=== PATIENT | female | born 1940 | race American Indian/Alaskan Native ===

== ENCOUNTER 2016-12-24 13:07 | Outpatient (CLI) | payer MEDICARE ==
--- NOTE | 2016-12-24 14:37 | Mammography Report ---
BILATERAL MAMMOGRAM: FINDINGS: The breasts are almost entirely fat (<25% glandular). No mass, distortion, suspicious calcification, or skin change is seen. CAD was utilized. IMPRESSION: Negative mammogram. There is no mammographic evidence of malignancy. RECOMMENDATION: Follow-up per ACS guidelines. BI-RADS CATEGORY: 1 = Negative ACR BI-RADS MAMMOGRAPHIC CODES: 0 = Needs additional imaging evaluation; 1 = Negative; 2 = Benign; 3 = Probably benign; 4 = Suspicious; 5 = Malignant; 6 = Known biopsy-proven malignancy COMMENT: 1. Dense breast tissue, i.e., adenosis, fibrocystic changes, etc., may obscure an underlying neoplasm. 2. Approximately 10% of cancers are not detected with mammography. 3. A negative mammography report should not delay biopsy if a clinically suspicious mass is present. COMMENT: Patient follow-up letters are generated in [facility].
== END 2016-12-24 13:08 | disposition home or self-care (01) ==
LOC: SPVWC 13:07
PROVIDERS: ATTEND Internal Medicine
DX: Z12.31 Encounter for screening mammogram for malignant neoplasm of breast (principal)
CPT/HCPCS: 77067; G0202

== ENCOUNTER 2018-05-04 21:46 | Inpatient (IN) | payer MEDICARE ==
[2018-05-05 00:51] LABS: Basophils # (Auto) 0.1 K/mm3 (0.0-0.1); Basophils % (Auto) 0.6 % (0.0-1.8); Eosinophils # (Auto) 0.2 K/mm3 (0.0-0.4); Eosinophils % (Auto) 1.8 % (0.0-4.3); Hematocrit 39.1 % (30.3-42.9); Hemoglobin 12.8 gm/dl (10.1-14.3); Lymphocytes # (Auto) 2.8 K/mm3 (1.2-5.4); Lymphocytes % (Auto) 20.7 % (13.4-35.0); Mean Corpuscular HGB Conc 33 % (30-34); Mean Corpuscular Volume 76 fl (79-97); Monocytes # (Auto) 1.1 K/mm3 (0.0-0.8); Monocytes % (Auto) 8.6 % (0.0-7.3); Platelet Count 308 K/mm3 (140-440); Red Blood Count 5.12 M/mm3 (3.65-5.03); Red Cell Distribution Width 17.2 % (13.2-15.2)
[2018-05-05 01:09] LABS: Alanine Aminotransferase 15 units/L (7-56); Albumin 3.7 g/dL (3.9-5); BUN/Creatinine Ratio 20; Blood Urea Nitrogen 14 mg/dL (7-17); Calcium 8.9 mg/dL (8.4-10.2); Hemolysis Index 6; Lipase 28 units/L (13-60)
[2018-05-05 01:09] LABS: Bacteria,Urine 4+ /HPF (Negative); Bilirubin,Urine NEG (Negative); Blood,Urine LG (Negative); Color,Urine Yellow (Yellow); Mucus,Urine 3+ /HPF; Protein,Urine <15 mg/dL mg/dL (Negative); Urobilinogen,Urine < 2.0 mg/dL (<2.0)
[2018-05-05 01:19] LABS: INR 0.95 (0.87-1.13)
[2018-05-05 01:20] LABS: Partial Thromboplastin Time 29.3 Sec. (24.2-36.6)
[2018-05-05 01:23] LABS: Mean Corpuscular Hemoglobin 25 pg (28-32)
[2018-05-05] MEDS ORDERED: PROTONIX IV ONE (04:41)
--- NOTE | 2018-05-05 04:42 | Emergency Department Report ---
ED GI Bleed HPI - General Chief complaint: GI Bleed Stated complaint: RECTAL BLEEDING/POSS VAG BLEEDING Time Seen by Provider: 05/05/18 04:18 Source: patient Mode of arrival: Wheelchair Limitations: No Limitations - History of Present Illness Initial comments: 1 day of black stool. Does not take blood thinners, iron, or Pepto-Bismol. She had an episode of this year ago, which resulted in a colonoscopy. Patient is not sure what it showed. Patient has also noticed blood in her urine and feels that she is urinating more often. Severity scale (0 -10): 0 - Related Data Home Medications Medication Instructions Recorded Confirmed Last Taken Aspirin EC [Aspirin Enteric Coated 81 mg PO QDAY 07/30/15 07/30/15 07/30/15 TAB] Metoprolol [Lopressor TAB] 50 mg PO QDAY 07/30/15 07/30/15 07/30/15 amLODIPine [Norvasc] 5 mg PO DAILY 07/30/15 07/30/15 07/30/15 Previous Rx's Medication Instructions Recorded Last Taken Type levoFLOXacin [Levaquin TAB] 500 mg PO QDAY #7 tablet 08/02/15 Unknown Rx Allergies Allergy/AdvReac Type Severity Reaction Status Date / Time No Known Allergies Allergy Unverified 07/30/15 20:15 ED Review of Systems ROS: Stated complaint: RECTAL BLEEDING/POSS VAG BLEEDING Other details as noted in HPI Comment: All other systems reviewed and negative Gastrointestinal: melena Genitourinary: frequency ED Past Medical Hx - Past Medical History Previous Medical History?: Yes Hx Hypertension: Yes Hx Arthritis: Yes - Surgical History Past Surgical History?: Yes Additional Surgical History: Jason. knee surgery - Social History Smoking Status: Never Smoker Substance Use Type: None - Medications Home Medications: Home Medications Medication Instructions Recorded Confirmed Last Taken Type Aspirin EC [Aspirin Enteric Coated 81 mg PO QDAY 07/30/15 07/30/15 07/30/15 History TAB] Metoprolol [Lopressor TAB] 50 mg PO QDAY 07/30/15 07/30/15 07/30/15 History amLODIPine [Norvasc] 5 mg PO DAILY 07/30/15 07/30/15 07/30/15 History levoFLOXacin [Levaquin TAB] 500 mg PO QDAY #7 tablet 08/02/15 Unknown Rx ED Physical Exam - General Limitations: No Limitations General appearance: alert, in no apparent distress - Head Head exam: Present: atraumatic, normocephalic - Eye Eye exam: Present: normal appearance - ENT ENT exam: Present: mucous membranes moist - Neck Neck exam: Present: normal inspection - Respiratory Respiratory exam: Present: normal lung sounds bilaterally. Absent: respiratory distress - Cardiovascular Cardiovascular Exam: Present: regular rate, normal rhythm. Absent: systolic murmur, diastolic murmur, rubs, gallop - GI/Abdominal GI/Abdominal exam: Present: soft, normal bowel sounds. Absent: distended, tenderness, guarding, rebound - Rectal Rectal exam: Present: heme (+) stool, black stool. Absent: hemorrhoids - Extremities Exam Extremities exam: Present: normal inspection - Back Exam Back exam: Present: normal inspection - Neurological Exam Neurological exam: Present: alert, oriented X3 - Psychiatric Psychiatric exam: Present: normal affect, normal mood - Skin Skin exam: Present: warm, dry, intact, normal color. Absent: rash ED Course Vital Signs 05/04/18 05/04/18 05/05/18 23:42 23:52 04:10 Temperature 98.5 F 98.7 F 98.1 F Pulse Rate 61 63 69 Respiratory 18 17 16 Rate Blood Pressure 172/68 172/68 Blood Pressure 158/71 [Left] O2 Sat by Pulse 100 99 97 Oximetry ED Medical Decision Making - Lab Data Result diagrams: 05/05/18 00:10 05/05/18 00:10 - Medical Decision Making 78-year-old female with past medical history of hypertension that presents with dark stool. Lab work is unremarkable. Vital signs are stable. Patient is well-appearing. Urinalysis shows concerns for UTI. SHe'll be treated with Keflex. Hemoglobin is stable. Melena on exam. I offered the patient outpatient follow-up with GI, but this made her feel uncomfortable. Patient has been given Protonix and will be admitted to the hospital for GI evaluation. Critical care attestation.: If time is entered above; I have spent that time in minutes in the direct care of this critically ill patient, excluding procedure time. ED Disposition Clinical Impression: Gastrointestinal hemorrhage with melena, UTI (urinary tract infection), Melena Disposition: OP ADMIT IP TO THIS HOSP Is pt being admited?: Yes Does the pt Need Aspirin: No Condition: Stable Referrals: PRIMARY CARE, [Primary Care Provider] - 3-5 Days Forms: Accompanied Note
[2018-05-05] MEDS ORDERED: KEFLEX PO ONE (04:44)
[2018-05-05] MEDS ORDERED: TYLENOL PO PRN (06:29)
[2018-05-05] MEDS ORDERED: ZOFRAN IV PRN (06:29)
[2018-05-05] MEDS ORDERED: NACL 0.9% 1000 ML 1,000 ML IV SCH ×2 (07:00→11:00)
--- NOTE | 2018-05-05 08:44 | History and Physical Report ---
CHIEF COMPLAINT: Rectal bleeding. HISTORY OF PRESENT ILLNESS: The patient is a 78-year-old female who said she has been seeing dark red blood in stool and also dark stool, going on for some time. There is no history of abdominal pain. No history of nausea or vomiting. The patient admitted to taking nonsteroidal anti-inflammatory agents, occasionally for pain and denied history of diarrhea or constipation. There is also no history of fever or chills. The patient presented for evaluation. PAST MEDICAL HISTORY: Pertinent for hypertension and arthritis. PAST SURGICAL HISTORY: Pertinent for bilateral knee surgery. FAMILY HISTORY: Noncontributory. SOCIAL HISTORY: The patient lives with family. Does not drink, does not drink alcohol, or does not use illicit drugs. MEDICATIONS: The patient is on aspirin 81 mg by mouth daily, metoprolol tablet 50 mg by mouth daily, amlodipine 5 mg by mouth daily, Levaquin 500 mg by mouth daily. ALLERGIES: There are no known drug allergies. REVIEW OF SYSTEMS: CONSTITUTIONAL: There is no fever, no chills, no diaphoresis. HEENT: There is no headache or sore throat. CARDIOVASCULAR: There is no chest pain or orthopnea. RESPIRATORY: There is no shortness of breath or cough. GASTROINTESTINAL: There is no abdominal pain, no nausea, no vomiting, no diarrhea or constipation. The patient does have melena and dark red color in the stool. NEUROLOGICAL SYSTEM: There is no numbness, no dizziness, no altered mental status. MUSCULOSKELETAL SYSTEM: There is no joint pain or swelling. DERMATOLOGICAL SYSTEM: There is no skin rash or itching. GENITOURINARY SYSTEM: There is no dysuria, hematuria or flank pain. Rest of system review is normal. PHYSICAL EXAMINATION: GENERAL: At the time of exam, the patient was found to be alert, oriented x 3, not in acute distress. VITAL SIGNS: Shows temperature of 98.5 degrees Fahrenheit, pulse of 61, respirations 18, blood pressure 172/68, O2 sat of 100% on room air. HEENT: Showed pupils to be equal, round, reactive to light and accommodation. Extraocular muscles are intact. NECK: Supple with no JVD or carotid bruit. CARDIOVASCULAR: Showed normal first and second heart sounds with no gallops or murmur. RESPIRATORY SYSTEM: Show good air entry on both sides of the lung with no abnormal breath sounds. GASTROINTESTINAL SYSTEM: Show abdomen to be full, soft, nontender with no organomegaly or rigidity. NEUROLOGIC: Reveals that she has no focal deficits. MUSCULOSKELETAL: Shows no joint swelling or tenderness. DERMATOLOGICAL SYSTEM: Show no skin rash. GENITOURINARY: Showing no costovertebral angle tenderness. PERTINENT LABORATORY DATA AND IMAGING STUDIES: The patient has CBC that shows elevated white count of 13.3 with normal hemoglobin, normal hematocrit and low MCV of 76. CBC with differential showing slight increase in segmented neutrophils. The patient's coagulation studies were unremarkable. The patient's chemistry was unremarkable except for slight decrease in CO2 of 21 and slight decrease in albumin level of 3.7. The patient's urinalysis does show moderate urine leukocyte esterase and elevated urine wbc's of 51 with 4+ bacteria. IMAGING STUDIES: No imaging studies were done at this time. DIAGNOSES: 1. Gastrointestinal bleed. 2. Urinary tract infection. PLAN: 1. The patient will be admitted to telemetry. 2. The patient will have hemoglobin and hematocrit checked q. 6 hours x 3 more levels. 3. The patient will be n.p.o. 4. The patient will have GI consult with [place] Daljit and Dr. Jeroinmo Mccloud has been listed. 5. The patient will be on IV normal saline at 75 mL an hour. 6. The patient will be on IV Protonix 40 mg q. 12 hours and will be on IV Zofran 4 mg every 8 hours as needed for nausea and vomiting. 7. The patient will be on Tylenol 650 mg by mouth every 4 hours for fever and headache and will be on IV ceftriaxone 1 gram daily for treatment of urinary tract infection. The patient will remain n.p.o. until seen by the Gastroenterology. JOB# [id number] OCN/NTS
--- NOTE | 2018-05-05 09:04 | Gastroenterology Consultation ---
<GERA MARCOS - Last Filed: 05/05/18 09:05> History of Present Illness - Reason for Consult Consult date: 05/05/18 GI bleed Requesting physician: ANTONY TOMAS - History of Present Illness Patient is a 78 y/o female with PMH of HTN who presented to the ED with c/o dark stool x 1 day and concerns for UTI. Urine positive for UTI with abx therapy given. This morning patient was resting on stretcher w/o acute distress. Reports black stool yesterday with also some red blood also noted in toilet. Denies fever, wt loss, CP, SOB, dizziness, abd pain, N/V, hematemesis, dysphagia, diarrhea, or constipation. Takes Celebrex at home for arthritis. No hx of PUD or previous EGD. Last colonoscopy within the past year with negative results per pt. According to ER record, rectal exam revealed black heme + stool. Upon exam this am, rectal revealed a small amount of bright red blood, however patient had urinated and origin of bleeding was uncertain (rectal vs vaginal?). No Fhx of colon cancer. Past History Past Medical History: arthritis, hypertension Past Surgical History: hysterectomy, total knee replacement (bilateral) Social history: denies: smoking, alcohol abuse Medications and Allergies Allergies Allergy/AdvReac Type Severity Reaction Status Date / Time No Known Allergies Allergy Unverified 07/30/15 20:15 Home Medications Medication Instructions Recorded Confirmed Last Taken Type Metoprolol [Lopressor TAB] 50 mg PO QDAY 07/30/15 05/05/18 07/30/15 History amLODIPine [Norvasc] 5 mg PO DAILY 07/30/15 05/05/18 07/30/15 History Celecoxib 200 mg PO DAILY 05/05/18 05/05/18 Unknown History Furosemide [Lasix] 20 mg PO QDAY 05/05/18 05/05/18 Unknown History Omeprazole 40 mg PO DAILY 05/05/18 05/05/18 Unknown History Active Meds: Active Medications Acetaminophen (Tylenol) 650 mg PO Q4H PRN PRN Reason: Fever >101 Ceftriaxone Sodium (Rocephin/Ns 1 Gm/50 Ml) 1 gm in 50 mls @ 100 mls/hr IV Q24HR AR; Protocol Sodium Chloride (Nacl 0.9% 1000 Ml) 1,000 mls @ 75 mls/hr IV DIRECT AR Ondansetron HCl (Zofran) 4 mg IV Q8H PRN PRN Reason: Nausea And Vomiting Pantoprazole Sodium (Protonix) 40 mg IV Q12H AR Review of Systems - Review of Systems All systems: negative Gastrointestinal: melena Exam - Constitutional Vital Signs: Temp Pulse Resp BP Pulse Ox 98.1 F 69 16 156/62 98 05/05/18 04:10 05/05/18 04:10 05/05/18 04:10 05/05/18 07:00 05/05/18 07:00 General appearance: no acute distress - EENT Eyes: PERRL, EOM intact ENT: hearing intact - Respiratory Respiratory: bilateral: CTA (anterior) - Cardiovascular Rhythm: regular Heart Sounds: Present: S1 & S2 - Gastrointestinal General gastrointestinal: Present: soft, non-tender, non-distended, normal bowel sounds Rectal Exam: other (no stool, scant amount of bright red blood (rectal vs vaginal from urine?)) - Neurologic Neurological: alert and oriented x3 - Labs CBC & Chem 7: 05/05/18 00:10 05/05/18 00:10 Lab Results: Laboratory Results - last 24 hr 05/04/18 05/05/18 05/05/18 Unknown 00:10 00:10 WBC 13.3 H RBC 5.12 H Hgb 12.8 Hct 39.1 MCV 76 L MCH 25 L MCHC 33 RDW 17.2 H Plt Count 308 Lymph % (Auto) 20.7 [place] % (Auto) 8.6 H Eos % (Auto) 1.8 Baso % (Auto) 0.6 Lymph # 2.8 [place] # 1.1 H Eos # 0.2 Baso # 0.1 Seg Neutrophils % 68.3 Seg Neutrophils # 9.1 H PT 13.2 INR 0.95 APTT 29.3 Sodium Potassium Chloride Carbon Dioxide Anion Gap BUN Creatinine Estimated GFR BUN/Creatinine Ratio Glucose Calcium Total Bilirubin AST ALT Alkaline Phosphatase Total Protein Albumin Albumin/Globulin Ratio Lipase Urine Color Yellow Urine Turbidity Cloudy Urine pH 5.0 Ur Specific [place] 1.019 Urine Protein <15 mg/dl Urine Glucose (UA) Neg Urine Ketones Neg Urine Blood Lg Urine Nitrite Pos Urine Bilirubin Neg Urine Urobilinogen < 2.0 Ur Leukocyte Esterase Mod Urine WBC (Auto) 51.0 H Urine RBC (Auto) 5.0 U Epithel Cells (Auto) 5.0 Urine Bacteria (Auto) 4+ Urine Mucus 3+ Blood Type Antibody Screen 05/05/18 05/05/18 00:10 00:10 WBC RBC Hgb Hct MCV MCH MCHC RDW Plt Count Lymph % (Auto) [place] % (Auto) Eos % (Auto) Baso % (Auto) Lymph # [place] # Eos # Baso # Seg Neutrophils % Seg Neutrophils # PT INR APTT Sodium 138 Potassium 3.8 Chloride 101.8 Carbon Dioxide 21 L Anion Gap 19 BUN 14 Creatinine 0.7 Estimated GFR > 60 BUN/Creatinine Ratio 20 Glucose 95 Calcium 8.9 Total Bilirubin 0.30 AST 24 ALT 15 Alkaline Phosphatase 100 Total Protein 7.5 Albumin 3.7 L Albumin/Globulin Ratio 1.0 Lipase 28 Urine Color Urine Turbidity Urine pH Ur Specific [place] Urine Protein Urine Glucose (UA) Urine Ketones Urine Blood Urine Nitrite Urine Bilirubin Urine Urobilinogen Ur Leukocyte Esterase Urine WBC (Auto) Urine RBC (Auto) U Epithel Cells (Auto) Urine Bacteria (Auto) Urine Mucus Blood Type B POSITIVE Antibody Screen Negative Assessment and Plan 1.GI bleed 2.melena 3.UTI- on abx therapy -afebrile -WBC 13.3 -INR 0.95 -H/H 12.8/39.1 -continue to monitor H/H and transfuse as needed -Black stool yesterday per pt, rectal this am showed a small amount of bright red blood with origin unclear (rectal vs vaginal?) -currently HD stable -colonoscopy within 1 year with negative results per pt -etiology unclear -will schedule for EGD this am to r/o ulcer vs other GI pathology -keep NPO -continue PPI and supportive care -will follow <CAT PRESTON - Last Filed: 05/05/18 10:04> Medications and Allergies Active Meds: Active Medications Acetaminophen (Tylenol) 650 mg PO Q4H PRN PRN Reason: Fever >101 Ceftriaxone Sodium (Rocephin/Ns 1 Gm/50 Ml) 1 gm in 50 mls @ 100 mls/hr IV Q24HR AR; Protocol Sodium Chloride (Nacl 0.9% 1000 Ml) 1,000 mls @ 75 mls/hr IV DIRECT AR Ondansetron HCl (Zofran) 4 mg IV Q8H PRN PRN Reason: Nausea And Vomiting Pantoprazole Sodium (Protonix) 40 mg IV Q12H AR Exam - Constitutional Vital Signs: Temp Pulse Resp BP Pulse Ox 98 F 61 16 147/58 99 05/05/18 08:00 05/05/18 09:16 05/05/18 09:16 05/05/18 09:16 05/05/18 09:16 - Labs CBC & Chem 7: 05/05/18 00:10 05/05/18 00:10 Lab Results: Laboratory Results - last 24 hr 05/04/18 05/05/18 05/05/18 Unknown 00:10 00:10 WBC 13.3 H RBC 5.12 H Hgb 12.8 Hct 39.1 MCV 76 L MCH 25 L MCHC 33 RDW 17.2 H Plt Count 308 Lymph % (Auto) 20.7 [place] % (Auto) 8.6 H Eos % (Auto) 1.8 Baso % (Auto) 0.6 Lymph # 2.8 [place] # 1.1 H Eos # 0.2 Baso # 0.1 Seg Neutrophils % 68.3 Seg Neutrophils # 9.1 H PT 13.2 INR 0.95 APTT 29.3 Sodium Potassium Chloride Carbon Dioxide Anion Gap BUN Creatinine Estimated GFR BUN/Creatinine Ratio Glucose Calcium Total Bilirubin AST ALT Alkaline Phosphatase Total Protein Albumin Albumin/Globulin Ratio Lipase Urine Color Yellow Urine Turbidity Cloudy Urine pH 5.0 Ur Specific [place] 1.019 Urine Protein <15 mg/dl Urine Glucose (UA) Neg Urine Ketones Neg Urine Blood Lg Urine Nitrite Pos Urine Bilirubin Neg Urine Urobilinogen < 2.0 Ur Leukocyte Esterase Mod Urine WBC (Auto) 51.0 H Urine RBC (Auto) 5.0 U Epithel Cells (Auto) 5.0 Urine Bacteria (Auto) 4+ Urine Mucus 3+ Blood Type Antibody Screen 05/05/18 05/05/18 00:10 00:10 WBC RBC Hgb Hct MCV MCH MCHC RDW Plt Count Lymph % (Auto) [place] % (Auto) Eos % (Auto) Baso % (Auto) Lymph # [place] # Eos # Baso # Seg Neutrophils % Seg Neutrophils # PT INR APTT Sodium 138 Potassium 3.8 Chloride 101.8 Carbon Dioxide 21 L Anion Gap 19 BUN 14 Creatinine 0.7 Estimated GFR > 60 BUN/Creatinine Ratio 20 Glucose 95 Calcium 8.9 Total Bilirubin 0.30 AST 24 ALT 15 Alkaline Phosphatase 100 Total Protein 7.5 Albumin 3.7 L Albumin/Globulin Ratio 1.0 Lipase 28 Urine Color Urine Turbidity Urine pH Ur Specific [place] Urine Protein Urine Glucose (UA) Urine Ketones Urine Blood Urine Nitrite Urine Bilirubin Urine Urobilinogen Ur Leukocyte Esterase Urine WBC (Auto) Urine RBC (Auto) U Epithel Cells (Auto) Urine Bacteria (Auto) Urine Mucus Blood Type B POSITIVE Antibody Screen Negative Assessment and Plan - Patient Problems (1) Gastrointestinal hemorrhage with melena Current Visit: Yes Status: Acute Plan to address problem: The patient was seen and personally interviewed and examined. History of melena , but no evidence of significant blood loss. Will plan EGD. She may need a colonoscopy if negative. Thank you for asking us to see her in consultation. (2) Urinary tract infection Current Visit: Yes Status: Acute
[2018-05-05] MEDS ORDERED: NACL 0.9% 1000 ML 1,000 ML ONE (10:23)
[2018-05-05] MEDS ORDERED: VERSED ONE (10:43)
[2018-05-05] MEDS ORDERED: DIPRIVAN 10 MG/ML IV ONE (10:43)
--- NOTE | 2018-05-05 10:52 | Anesthesia Consultation ---
Anesthesia Consult and Med Hx - Airway Anesthetic Teeth Evaluation: Dentures ROM Head & Neck: Adequate Mental/Hyoid Distance: Adequate Mallampati Class: Class I Intubation Access Assessment: Probably Good - Pulmonary Exam CTA: Yes - Cardiac Exam Cardiac Exam: RRR - Pre-Operative Health Status ASA Pre-Surgery Classification: ASA3 Proposed Anesthetic Plan: General - Cardiovascular System Hx Hypertension: Yes - Central Nervous System CVA: No Hx Psychiatric Problems: No - Additional Comments Anesthesia Medical History Comments: Presents with GI bleed.
--- NOTE | 2018-05-05 11:06 | Operative Report ---
Operative Report Operative Report: Date of procedure: 05/05/2018 Procedure: Esophagogastroduodenoscopy Preprocedure diagnosis: Melena and Hemoccult-positive stool Post procedure diagnosis: Retained old food in the stomach consistent with gastroparesis, otherwise normal upper digestive tract with no overt bleeding sources. Endoscopist: Dr. Beaver Anesthesia: Monitored anesthesia care per anesthesia department Medications: ropofol per anesthesia]Estimated blood loss: 0 After careful discussion of the nature and purpose of the procedure as well as details the technique risks benefits and alternatives consent was obtained. The patient was placed in the left lateral decubitus position and medicated per anesthesia. The tip of the Connect 570 video scope was passed per orum under direct vision into the esophagus and advanced into the stomach and descending duodenum. The descending duodenum the duodenal bulb and pylorus were symmetrical and normal. The scope was withdrawn into the stomach and the stomach then gently insufflated with air. The antrum was normal. The stomach was further insufflated and the scope was then retroflexed and partially withdrawn. There was a moderate amount of old food present on the greater curvature of the stomach precluding some areas from visual inspection. The findings were consistent with gastroparesis and absence of a gastric outlet obstruction. The cardia, fundus, and body of the stomach were within normal limits and easily distensible.The scope was then withdrawn in the forward position. The esophagogastric junction was at 40 cm. The esophageal body was normal throughout. The procedure was was well tolerated and the patient was observed in recovery. Impressions: Retained old food in the stomach consistent with gastroparesis. No evidence of gastric outlet obstruction. No ulcers or tumor. Sources of blood loss. Plan: Outpatient colonoscopy in light of normal hemoglobin. Advance diet. Follow up H&H in a.m. Electronically signed: Cristiano Beaver MD
[2018-05-05] MEDS ORDERED: WATER FOR IRRIG STERILE IR ONE (12:22)
[2018-05-05] MEDS ORDERED: XYLOCAINE MPF 2% ONE (12:30)
--- NOTE | 2018-05-05 13:16 | Anesthesia Day of Surgery ---
Anesthesia Day of Surgery - Day of Surgery Patient Examined: Yes Patient H&P Reviewed: Yes Patient is NPO: Yes Beta Blockers: Yes Cardiac Clearance: No Pulmonary Clearance: No
[2018-05-05] MEDS ORDERED: APRESOLINE IV PRN (14:04)
[2018-05-05] MEDS: ROCEPHIN/NS 1 GM/50 ML 1 GM/50 ML BAG IV SCH (14:17)
[2018-05-05 14:29] LABS: Hematocrit 37.7 % (30.3-42.9); Hemoglobin 11.8 gm/dl (10.1-14.3)
[2018-05-05] MEDS: LASIX PO SCH (16:35)
[2018-05-05] MEDS: NORVASC PO SCH (16:40)
[2018-05-05] MEDS: LOPRESSOR PO SCH (16:40)
[2018-05-05 21:30] VITALS: BP 146/57
[2018-05-05 21:38] LABS: Hematocrit 37.1 % (30.3-42.9); Hemoglobin 11.8 gm/dl (10.1-14.3)
[2018-05-06 00:48] LABS: Hematocrit 35.6 % (30.3-42.9); Hemoglobin 11.4 gm/dl (10.1-14.3)
[2018-05-06 09:51] LABS: Hematocrit 39.1 % (30.3-42.9); Hemoglobin 12.1 gm/dl (10.1-14.3); Mean Corpuscular HGB Conc 31 % (30-34); Mean Corpuscular Volume 79 fl (79-97); Platelet Count 313 K/mm3 (140-440); Red Blood Count 4.98 M/mm3 (3.65-5.03); Red Cell Distribution Width 16.9 % (13.2-15.2)
[2018-05-06] MEDS ORDERED: PROTONIX PO SCH (10:00)
[2018-05-06 10:02] LABS: Mean Corpuscular Hemoglobin 24 pg (28-32)
[2018-05-06] MEDS: ROCEPHIN/NS 1 GM/50 ML 1 GM/50 ML BAG IV SCH (11:55)
[2018-05-06] MEDS: LASIX PO SCH (11:56)
[2018-05-06] MEDS: NORVASC PO SCH (11:56)
[2018-05-06] MEDS: LOPRESSOR PO SCH (11:56)
--- NOTE | 2018-05-06 12:23 | Discharge Summary ---
Providers - Providers Date of Admission: 05/05/18 06:21 Date of discharge: 05/06/18 Attending physician: HAMMAD LAUREANO 05/05/18 06:25 Consult to Physician [CONS] Routine Comment: Dr. Aime Beaver Notified Consulting Provider: ANUSHKA LIM Physician Instructions: Reason For Exam: G.I BLEED Primary care physician: YONNY FRYE MD Hospitalization Condition: Fair Disposition: DC-01 TO HOME OR SELFCARE - Discharge Diagnoses (1) Gastrointestinal hemorrhage with melena Status: Acute (2) Urinary tract infection Status: Acute Comment: treat (3) HTN (hypertension) Status: Chronic Qualifiers: Hypertension type: essential hypertension Qualified Code(s): I10 - Essential (primary) hypertension Comment: stable Core Measure Documentation - Palliative Care Palliative Care/ Comfort Measures: Not Applicable - Core Measures Any of the following diagnoses?: none Exam - Constitutional Vitals: Temp Pulse Resp BP Pulse Ox 98.0 F 60 17 146/57 97 05/05/18 19:20 05/06/18 11:56 05/05/18 19:20 05/05/18 19:20 05/06/18 09:06 Plan Activity: no restrictions Diet: low fat, low cholesterol, low salt Additional Instructions: 1.Follow up with PCP in 1 week. 2.Follow up with Dr. Beaver in 1 week to arrange outpatient colonoscopy Follow up with: YONNY FRYE MD [Primary Care Provider] - 3-5 Days Forms: Accompanied Note
== END 2018-05-06 16:00 | disposition home or self-care (01) | DRG 378 ==
LOC: ED 21:46 → 4A 05-05 06:21
PROVIDERS: ADMIT Internal Medicine; ATTEND Internal Medicine
PROC: 0DJ08ZZ Inspection of Upper Intestinal Tract, Via Natural or Artificial Opening Endoscopic (ICD-10-PCS; principal; 2018-05-05)
DX: K92.1 Melena (principal); N39.0 Urinary tract infection, site not specified; I10 Essential (primary) hypertension; M19.90 Unspecified osteoarthritis, unspecified site; K31.84 Gastroparesis; Z96.653 Presence of artificial knee joint, bilateral; Z90.710 Acquired absence of both cervix and uterus; Z79.899 Other long term (current) drug therapy; Z79.82 Long term (current) use of aspirin
CPT/HCPCS: 36415; 80053; 81001; 83690; 85014; 85018; 85025; 85027; 85610; 85730; 86850; 86900; 86901; 96374; C9113; J0360; J0696; J2250; J2704; J7030